=== PATIENT | female | born 1945 | race Caucasian/White ===

== ENCOUNTER 2016-12-16 17:10 | Emergency (ER) | payer MEDICARE ==
[2016-12-16 17:22] VITALS: BP 131/71
--- NOTE | 2016-12-16 17:26 | EDM.PDOC ---
ED HPI RENAL/ - General Chief Complaint: Genitourinary Problem Stated Complaint: BLADDER INFECTION Time Seen by Provider: 12/16/16 17:11 Source of Information: Reports: Patient, Family, RN, RN notes reviewed History Limitations: Reports: No limitations - History of Present Illness INITIAL COMMENTS - FREE TEXT/NARRATIVE: Patient presents to the ED at [facility] complaining of lower pelvic pressure, urinary frequency and urgency, that began about one hour ago. No previous history of acute cystitis. No ayala catheter or recent instrumentation. No calcium metabolism disorders. Patient denies any malodorous urine. No vaginal discharge. Patient states she is trying to stay well hydrated. Patient is not sure if there is blood in the urine. Symptom Onset Date: 12/16/16 Symptom Onset Time: 16:30 Timing/Duration: Reports: Intermittent Location: Reports: periumbilical Quality: Reports: fullness Severity: mild Worsens with: Reports: urinating Context: Denies: sick contact, recent surgery, recent trauma, lifting Associated Symptoms: Reports: frequency, hesitancy, urgency, voiding small amounts. Denies: vaginal discharge, blood in urine, abdominal pain, nausea/ vomiting - Related Data Allergies/ADRs: Allergies Allergy/AdvReac Type Severity Reaction Status Date / Time acetaminophen Allergy Vomiting Verified 12/16/16 17:25 [From Tylenol-Codeine #3] codeine phosphate Allergy Vomiting Verified 12/16/16 17:25 [From Tylenol-Codeine #3] metronidazole Allergy Itching Verified 12/16/16 17:25 Home Meds: Home Meds Calcium Carb & Citrate/Vit D3 [Calcium + D3 ER Tablet] 1 each PO 04/17/14 [ History] Escitalopram [Lexapro] 20 mg PO BRK 04/17/14 [History] Hydrochlorothiazide 25 mg PO DAILY 04/17/14 [History] Levothyroxine [Synthroid] 88 mcg PO ACBRK 04/17/14 [History] Multivitamin [Multi-Vitamin Daily] 1 each PO 04/17/14 [History] Potassium Chloride [Klor-Con] 20 meq PO BRK 04/17/14 [History] Ramipril [Altace] 10 mg PO ACBRK 04/17/14 [History] atorvaSTATin [Lipitor] 20 mg PO BEDTIME 04/17/14 [History] lamoTRIgine [Lamotrigine] 150 mg PO BID 04/17/14 [History] risperiDONE [RisperiDAL] 2 mg PO BEDTIME 04/17/14 [History] Acetaminophen [Tylenol Extra Strength] 500 mg PO Q4H PRN #60 tab 04/23/14 [Rx] Celecoxib [CeleBREX] 200 mg PO DAILY #30 cap 04/23/14 [Rx] Docusate Sodium [Colace] 100 mg PO BID #60 cap 04/23/14 [Rx] Rivaroxaban [Xarelto] 10 mg PO DAILY #11 tablet 04/23/14 [Rx] Nitrofurantoin Macrocrystal [Macrodantin] 100 mg PO BID #10 capsule 12/16/16 [Rx ] Social & Family History - Tobacco Use Years of Tobacco use: 20 Used Tobacco, but Quit: Yes Month Tobacco Last Used: 20 years ago Second Hand Smoke Exposure: No - Alcohol Use Days Per Week of Alcohol Use: 0 Number of Drinks Per Day: 1 Total Drinks Per Week: 0 - Recreational Drug Use Recreational Drug Use: No Drug Use in Last 12 Months: No ED ROS GENERAL - Review of Systems Review Of Systems: See Below Constitutional: Denies: fever, chills, weakness Respiratory: Denies: shortness of breath, cough Cardiovascular: Denies: Chest pain, Palpitations GI/Abdominal: Denies: Abdominal pain, Nausea, Vomiting : Reports: frequency, pain, urgency. Denies: dysuria, hematuria Skin: Reports: no symptoms Neurological: Reports: no symptoms. Denies: dizziness, headache ED EXAM, RENAL/ - Physical Exam Exam: See Below Exam Limited By: No limitations General Appearance: alert, no apparent distress Respiratory/Chest: no respiratory distress, lungs clear, normal breath sounds Cardiovascular: regular rate, rhythm GI/Abdominal: normal bowel sounds, soft, non tender, no distention (Female) Exam: Deferred Neurological: alert, oriented Skin Exam: Warm, Dry, Intact, Normal color, No rash Course - Vital Signs Last Recorded V/S: Last Vital Signs Temp 36.2 C 12/16/16 17:21 Pulse 89 12/16/16 17:21 Resp 16 12/16/16 17:21 BP 131/71 12/16/16 17:21 Pulse Ox 96 12/16/16 17:21 - Orders/Labs/Meds Orders: Active Orders 24 hr Category Date Time Status UA W/MICROSCOPIC [URIN] Stat Lab 12/16/16 18:08 Ordered Nitrofurantoin Gulf/Macrocryst [Take Home: Nitrofur Med 12/16/16 18:10 Once Gulf/Ma 100 MG, 2 Pack] 2 packet PO ONETIME ONE Labs: Laboratory Tests 12/16/16 Range/Units 17:45 Urine Color Brown H (YELLOW) POC Urine Appearance Cloudy H (CLEAR) POC Urine pH 6.0 (5.0-8.0) Ur Specific [employer] 1.030 (1.005-1.030) POC Urine Protein 100 H (NEGATIVE) POC Ur Glucose (UA) Negative (NEGATIVE) POC Urine Ketones Small (NEGATIVE) POC Ur Occult Blood Large H (NEGATIVE) POC Urine Nitrite Negative (NEGATIVE) POC Urine Bilirubin Negative (NEGATIVE) POC Urine Urobilinogen 0.2 (0.2) POC U Leukocyte Esteras Moderate H (NEGATIVE) Departure - Departure Time of Disposition: 18:07 Disposition: Home, Self-Care 01 Condition: good Clinical Impression: Urinary tract infection Qualifiers: Urinary tract infection type: acute cystitis Hematuria presence: with hematuria Qualified Code(s): N30.01 - Acute cystitis with hematuria Prescriptions: Nitrofurantoin Macrocrystal [Macrodantin] 100 mg PO BID #10 capsule Instructions: Urinary Tract Infection, Adult, [id number] Referrals: Catie Gonzalez DO [Primary Care Provider] - Forms: ED Department Discharge Additional Instructions: 1. Stay well hydrated and rest 2. Take antibiotics for the full coarse, even if you are feeling better 3. Use Tylenol for pain; avoid Advil 4. See your Primary as symptoms warrant - Problem List Review Problem List Initiated/Reviewed/Updated: Yes - My Orders Last 24 Hours: My Active Orders 12/16/16 18:08 UA W/MICROSCOPIC [URIN] Stat 12/16/16 18:10 Nitrofurantoin Gulf/Macrocryst [Take Home: Nitrofur Gulf/Ma 100 MG, 2 Pack] 2 packet PO ONETIME ONE - Assessment/Plan Last 24 Hours: My Active Orders 12/16/16 18:08 UA W/MICROSCOPIC [URIN] Stat 12/16/16 18:10 Nitrofurantoin Gulf/Macrocryst [Take Home: Nitrofur Gulf/Ma 100 MG, 2 Pack] 2 packet PO ONETIME ONE
[2016-12-16] MEDS ORDERED: Take Home: Nitrofurantoin Monohydrate/Macrocrystalline 100 MG, 2 Cap Pack PO ONE (18:10)
== END 2016-12-16 18:32 | disposition home or self-care (01) ==
LOC: VM.ED 17:10
DX: N30.01 Acute cystitis with hematuria (principal); Z88.5 Allergy status to narcotic agent; Z88.8 Allergy status to other drugs, medicaments and biological substances; Z79.899 Other long term (current) drug therapy
CPT/HCPCS: 81001; 99283; A9270

== ENCOUNTER 2024-03-13 13:25 | Emergency (ER) | payer MEDICARE, OTHER ==
[2024-03-13] MEDS: Lactated Ringers 1,000 ML IV ONE ×2 (14:07→15:10)
[2024-03-13 14:08] LABS: HEMATOCRIT 32.7 % (33.0-47.0); MEAN CORPUSCULAR HGB CONC 33.6 g/dL (32.0-36.0); MEAN CORPUSCULAR VOLUME 100.9 fL (78.0-93.0); PLATELET COUNT,PLT 122 x10^3/uL (130-400); RED BLOOD CELL COUNT 3.24 x10^6/uL (4.00-5.50)
[2024-03-13] MEDS ORDERED: Sodium Chloride 0.9% 10 ML Syringe FLUSH PRN (14:22)
[2024-03-13 14:26] LABS: PROTHROMBIN TIME 10.6 SEC (8.9-11.5); PTT,PARTIAL THROMBOPLSTIN TIME 27.4 SEC (21.9-33.8)
[2024-03-13 14:33] LABS: LACTIC ACID 4.4 mmol/L (0.4-2.0)
[2024-03-13 14:36] LABS: A/G RATIO 0.93; ALANINE AMINOTRANSFERASE,ALT 20 U/L (14-59); ALBUMIN 2.8 g/dL (3.4-5.0); ALKALINE PHOSPHATASE 101 U/L (46-116); ASPARTATE AMNIOTRANSFERASE,AST 20 U/L (15-37); BILIRUBIN TOTAL 0.7 mg/dL (0.2-1.0); BLOOD UREA NITROGEN,BUN 39 mg/dL (7-18); C-REACTIVE PROTEIN 11.95 mg/dL (<=0.50); CALCIUM 9.6 mg/dL (8.5-10.1); CARBON DIOXIDE,CO2 23 mmol/L (21-32); CHLORIDE,CL 109 mmol/L (98-107); CREATININE 2.7 mg/dL (0.55-1.02); GLUCOSE RANDOM 128 mg/dL (70-99); LIPASE 15 U/L (19-71); MAGNESIUM 1.4 mg/dL (1.8-2.4); POTASSIUM,K 3.6 mmol/L (3.5-5.1); PROTEIN TOTAL,TP 5.8 g/dL (6.4-8.2); SODIUM,NA 145 mmol/L (136-145); TSH ULTRASENSITIVE 0.932 uIU/mL (0.358-3.74)
[2024-03-13 14:37] LABS: ANION GAP 16.6 mmol/L (5-15); ESTIMATED GFR 17 mL/min (>=60)
[2024-03-13 14:42] LABS: APPEARANCE,URINE SLIGHTLY CLOUDY (CLEAR); BILIRUBIN,URINE SMALL (NEGATIVE); COLOR,URINE YELLOW (YELLOW); GLUCOSE,URINE NEGATIVE (NEGATIVE); KETONES,URINE 15 mg/dL (NEGATIVE); LEUKOCYTE ESTERASE,URINE SMALL (NEGATIVE); NITRITE,URINE NEGATIVE (NEGATIVE); OCCULT BLOOD,URINE TRACE-INTACT (NEGATIVE); PROTEIN,URINE 30 mg/dL (NEGATIVE); UROBILINOGEN,URINE 0.2 EU/dL (0.2)
[2024-03-13 14:43] LABS: WHITE BLOOD CELL COUNT,WBC 20.7 x10^3/uL (4.0-10.0)
[2024-03-13] MEDS: Piperacillin/Tazobactam 4.5 GM in Sodium Chloride 0.9% 100 ML IV ONE (14:45)
[2024-03-13 14:49] LABS: BAND PERCENT MAN 2 % (0-6); LYMPHOCYTES ABSOLUTE MAN 0.8 x10^3/uL (1.0-4.8); LYMPHOCYTES PERCENT MAN 4 % (25-50); MONOCYTES ABSOLUTE MAN 1.2 x10^3/uL (0.0-0.8); MONOCYTES PERCENT MAN 6 % (2-11); NEUTROPHILS ABSOLUTE MAN 18.6 x10^3/uL (1.8-7.7); SEG NEUTROPHILS PERCENT MAN 88 % (50-80)
[2024-03-13 14:53] LABS: BACTERIA,URINE MODERATE /HPF (NOT SEEN); RBC,URINE 0-5 /HPF (NOT SEEN); SQUAMOUS EPITHELIAL CELLS,UR FEW /HPF (NOT SEEN); WBC,URINE 0-5 /HPF (NOT SEEN)
[2024-03-13] MEDS: Norepinephrine Bit/D5W Premix 250 ML IV SCH (15:07)
[2024-03-13 16:56] LABS: FECAL OCCULT BLOOD INTERP NEGATIVE (NEGATIVE)
== END 2024-03-13 16:28 | disposition short-term general hospital (02) ==
LOC: VM.ED 13:25
DX: A41.9 Sepsis, unspecified organism (principal); R65.21 Severe sepsis with septic shock; I12.9 Hypertensive chronic kidney disease with stage 1 through stage 4 chronic kidney disease, or unspecified chronic kidney disease; N18.30 Chronic kidney disease, stage 3 unspecified; E78.00 Pure hypercholesterolemia, unspecified; E03.9 Hypothyroidism, unspecified; Z88.5 Allergy status to narcotic agent; Z88.6 Allergy status to analgesic agent; Z79.890 Hormone replacement therapy; Z88.8 Allergy status to other drugs, medicaments and biological substances; Z79.82 Long term (current) use of aspirin
CPT/HCPCS: 36415; 51702; 71045; 74176; 80053; 81001; 82271; 82274; 83605; 83690; 83735; 84443; 85025; 85610; 85730; 86140; 87040; 87077; 87086; 87088; 87186; 96361; 96365; 96367; 99285-25; J2543; J3490; J7120